=== PATIENT | female | born 1980 | race Caucasian/White ===

== ENCOUNTER 2016-12-14 18:17 | Emergency (ER) | payer OTHER ==
[2016-12-14] MEDS ORDERED: Sodium Chloride 0.9% 1,000 ML IV ONE (19:35)
[2016-12-14] MEDS ORDERED: Sodium Chloride 0.9% 1,000 ML ONE (20:00)
[2016-12-14 20:05] LABS: BASO % 0.4 % (0.0-2.0); EOS % 0.3 % (0.0-4.0); HEMATOCRIT 42.7 % (34.0-47.0); LYMPH # 0.4 K/uL (1.0-4.3); LYMPH % 5.6 % (20.0-40.0); MEAN CELL VOLUME 80.4 fL (81.0-99.0); MEAN CORPUSCULAR HEMOGLOBIN 26.3 pg (27.0-31.0); MEAN CORPUSCULAR HGB CONC 32.8 g/dL (33.0-37.0); MEAN PLATELET VOLUME 8.5 fL (7.2-11.7); MONO # 0.7 K/uL (0.0-0.8); MONO % 10.7 % (0.0-10.0); PLATELET COUNT 361 K/uL (130-400); RED CELL DISTRIBUTION WIDTH 14.2 % (11.5-14.5); WHITE BLOOD COUNT 6.9 K/uL (4.8-10.8)
[2016-12-14 20:17] LABS: CHLORIDE 96 mmol/L (98-107); POTASSIUM 4.1 mmol/L (3.6-5.2); SODIUM 137 mmol/L (132-148)
[2016-12-14 20:19] LABS: BILIRUBIN,TOTAL 0.9 mg/dL (0.2-1.3); CARBON DIOXIDE 21 mmol/L (22-30); GFR AFRICAN-AMERICAN > 60
[2016-12-14 20:20] LABS: ALB/GLOB RATIO 1.2 (1.0-2.1); ALKALINE PHOSPHATASE 99 U/L (38-126); ALT/SGPT 28 U/L (9-52); AST/SGOT 28 U/L (14-36); BLOOD UREA NITROGEN 10 mg/dL (7-17); CALCIUM 9.8 mg/dl (8.6-10.4); GLUCOSE,RANDOM 106 mg/dL (65-105); TOTAL PROTEIN 8.6 g/dL (6.3-8.3)
--- NOTE | 2016-12-14 20:34 | C.PDOC ---
History Of Present Illness 36 y/o female presents to the ED with complains of nausea, vomiting and body aches for the past 2 days. Pt denies eating different foods. No sick contacts. Denies fever, chills, diarrhea, chest pain or any other complaints. Time Seen by Provider: 12/14/16 19:33 Chief Complaint (Nursing): Abdominal Pain History Per: Patient History/Exam Limitations: no limitations Onset/Duration Of Symptoms: Days Current Symptoms Are (Timing): Still Present Severity: Mild Recent travel outside of the [place]: No Past Medical History Reviewed: Historical Data, Nursing Documentation, Vital Signs Vital Signs: Last Vital Signs Temp 98.3 F 12/14/16 18:46 Pulse 109 H 12/14/16 18:46 Resp 18 12/14/16 18:46 BP 127/89 12/14/16 18:46 Pulse Ox 112 H 12/14/16 20:35 Surgical History: Appendectomy, Cholecystectomy, Family History: States: Unknown Family Hx - Social History Hx Alcohol Use: Yes Hx Substance Use: No - Immunization History Hx Tetanus Toxoid Vaccination: Yes Hx Influenza Vaccination: Yes Hx Pneumococcal Vaccination: No Review Of Systems Except As Marked, All Systems Reviewed And Found Negative. Constitutional: Positive for: Other (body aches). Negative for: Fever, Chills Cardiovascular: Negative for: Chest Pain Gastrointestinal: Positive for: Nausea, Vomiting. Negative for: Diarrhea Physical Exam - Physical Exam Appears: Non-toxic, No Acute Distress, Other (obese) Skin: Warm, Dry, No Rash Head: Atraumatic, Normacephalic Oral Mucosa: Moist Throat: Normal, No Erythema Neck: Normal ROM, Supple Chest: Symmetrical Cardiovascular: Rhythm Regular, No Murmur Respiratory: Normal Breath Sounds, No Rales, No Rhonchi, No Wheezing Gastrointestinal/Abdominal: Soft, No Tenderness Extremity: Bilateral: Atraumatic Neurological/Psych: Oriented x3, Normal Speech ED Course And Treatment - Laboratory Results Result Diagrams: 12/14/16 20:02 12/14/16 20:02 Lab Interpretation: Normal (UA neg.) Urine POC: Negative O2 Sat by Pulse Oximetry: 112 - Radiology CXR: Interpreted by Me CXR Interpretation: Yes: No Acute Disease - Other Rad abd x 2 X-Ray: Interpreted by Me (nl) Reevaluation Time: 21:56 Reassessment Condition: Improved Medical Decision Making Medical Decision Making: Plan: Labs, UA, XR abdomen, pepcid, zofran, toradol, IV fluids vomiting x 2 days body aches no dehydration, normal urine Disposition Doctor Will See Patient In The: Office Counseled Patient/Family Regarding: Studies Performed, Diagnosis - Disposition Disposition: HOME/ ROUTINE Disposition Time: 21:56 Condition: GOOD - Clinical Impression Clinical Impression: Vomiting - Scribe Statement The provider has reviewed the documentation as recorded by the Angelic Ely Provider Attestation: All medical record entries made by the Angelic were at my direction and personally dictated by me. I have reviewed the chart and agree that the record accurately reflects my personal performance of the history, physical exam, medical decision making, and the department course for this patient. I have also personally directed, reviewed, and agree with the discharge instructions and disposition.
[2016-12-14 20:37] LABS: BASOPHIL 1 % (0-2); NEUTROPHIL 82 % (50-75); TOTAL CELLS COUNTED 100
[2016-12-14 21:15] LABS: RBC URINE 16 /hpf (0-3); URINE BACTERIA RARE (<OCC); URINE BILIRUBIN NEGATIVE (NEGATIVE); URINE BLOOD 2+ (NEGATIVE); URINE COLOR Yellow (YELLOW); URINE GLUCOSE (UA) NORMAL (Normal); URINE KETONE 2+ mg/dL (NEGATIVE); URINE LEUKOCYTE ESTERASE NEG Leu/uL (Negative); URINE PROTEIN NEGATIVE (NEGATIVE); URINE UROBILINOGEN NORMAL mg/dL (0.2-1.0); WBC URINE < 1 /hpf (0-5)
[2016-12-14 22:17] VITALS: BP 120/73; PULSE 92; RESP 20; TEMP 98; O2SAT 97
--- NOTE | 2016-12-15 12:43 | RAD ---
PROCEDURE: Radiographs of the chest and abdomen (obstructive series) HISTORY: abd pain COMPARISON: No prior. TECHNIQUE: AP radiograph of the chest, with upright and supine radiographs of the abdomen. FINDINGS: CHEST: Lungs: Clear. Cardiovascular: Normal size heart. No pulmonary vascular congestion. Pleura: No pleural fluid. No pneumothorax. Other findings: None. ABDOMEN AND PELVIS: Bowel: No bowel obstruction. Mild retained feces in the right colon. Free air: None. Bones: Unremarkable. Other findings: None. IMPRESSION: Unremarkable radiographs of chest and abdomen. No evidence of mechanical bowel obstruction.
== END 2016-12-14 22:47 | disposition home or self-care (01) ==
LOC: C.ER 18:17
DX: R11.2 Nausea with vomiting, unspecified (principal)
CPT/HCPCS: 74022; 80053; 81001; 83690; 84703; 85025; 96361; 96374; 96375; 99285; J1885; J2405; J7040

== ENCOUNTER 2018-07-09 10:39 | Emergency (ER) | payer OTHER ==
[2018-07-09 11:26] LABS: BASO # 0.1 K/uL (0.0-0.2); EOS # 0.2 K/uL (0.0-0.7); EOS % 2.3 % (0.0-4.0); HEMOGLOBIN 14.1 g/dL (11.0-16.0); LYMPH # 2.9 K/uL (1.0-4.3); LYMPH % 29.6 % (20.0-40.0); MEAN CORPUSCULAR HEMOGLOBIN 27.9 pg (27.0-31.0); MEAN CORPUSCULAR HGB CONC 33.7 g/dL (33.0-37.0); MONO # 0.7 K/uL (0.0-0.8); MONO % 6.8 % (0.0-10.0); NEUT # 5.9 K/uL (1.8-7.0); NEUT % 60.3 % (50.0-75.0); RBC 5.03 Mil/uL (3.80-5.20); WHITE BLOOD COUNT 9.8 K/uL (4.8-10.8)
[2018-07-09 11:27] LABS: MEAN CELL VOLUME 82.8 fL (81.0-99.0)
[2018-07-09 11:37] LABS: HCG,QUALITATIVE URINE NEGATIVE (NEGATIVE)
--- NOTE | 2018-07-09 11:58 | C.PDOC ---
History Of Present Illness 38 year old female presents to the ED complaining of left-sided pelvic pain for the past three days. She reports having her menstrual cycle for twenty days. She states she has used 8-7 pad/day for the last three days. The patient also reports chest pain and SOB for last 4 days with no cough, no fever, not on opc. . She states she saw her Doctor on 07/07 for the chest pain and is scheduled to have an X-Ray done on 07/11. She is meant to set up an appointment on Wednesday when her OBGYN returns. The patient denies any dysuria, frequency, fever, or sexual activity. The patient admits her last BM was this morning. She reports taking Tylenol last night but she states she has not taken any other medication for the pain because she experiences no relief of her symptoms. Time Seen by Provider: 07/09/18 11:01 Chief Complaint (Nursing): Abdominal Pain History Per: Patient History/Exam Limitations: no limitations Onset/Duration Of Symptoms: Days Current Symptoms Are (Timing): Still Present Location Of Pain/Discomfort: Other (Left sided pelvic pain) Quality Of Discomfort: Burning, Stabbing, "Pain" Associated Symptoms: Chest Pain Alleviating Factors: denies: OTC Meds Last Bowel Movement: Today (This morning) Recent travel outside of the [place]: No Past Medical History Reviewed: Historical Data, Nursing Documentation, Vital Signs Vital Signs: Last Vital Signs Temp 98.7 F 07/09/18 10:42 Pulse 76 07/09/18 10:42 Resp 20 07/09/18 10:42 BP 131/89 07/09/18 10:42 Pulse Ox 99 07/09/18 10:42 - Medical History PMH: No Chronic Diseases Surgical History: Appendectomy, Cholecystectomy, Family History: States: Unknown Family Hx - Social History Hx Alcohol Use: Yes Hx Substance Use: No - Immunization History Hx Tetanus Toxoid Vaccination: Yes Hx Influenza Vaccination: Yes Hx Pneumococcal Vaccination: No Review Of Systems Constitutional: Negative for: Fever Cardiovascular: Positive for: Chest Pain Respiratory: Positive for: Shortness of Breath Genitourinary: Positive for: Pelvic Pain. Negative for: Dysuria, Frequency Physical Exam - Physical Exam Appears: Non-toxic, No Acute Distress Skin: Warm, Dry Head: Atraumatic, Normacephalic Eye(s): bilateral: PERRL, EOMI Neck: Supple Chest: Tenderness (reproducible left sternal chest pain ) Cardiovascular: Rhythm Regular (and rate), No Murmur Respiratory: No Rales, No Rhonchi, No Wheezing, Other (CTA b/l) Gastrointestinal/Abdominal: Soft, Tenderness (left sided pelvic tenderness), No Distention, Other (normoactive bowel sounds) Back: No CVA Tenderness Extremity: No Calf Tenderness, No Swelling Neurological/Psych: Oriented x3, Normal Speech ED Course And Treatment - Laboratory Results Result Diagrams: 07/09/18 11:23 07/09/18 12:21 ECG: Interpreted By Me, Viewed By Me ECG Rhythm: Sinus Rhythm Interpretation Of ECG: normal sinus rhythm; nonspecific T wave abnormality; abnormal ECG Rate From EC O2 Sat by Pulse Oximetry: 99 (RA) Pulse Ox Interpretation: Normal Medical Decision Making Medical Decision Making: Impression: 38 y/o female with 20 days menstrual cycle, left sided pelvic pain, chest pain and back pain. Plan: -CMP -CBC -Urine culture -UA 1645 pt has been resting comfortably all day while waiting for test results. pt with normal labs, not anemic. all pain resolved after toradol. 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 discussed with pt that she needs to have uterine biopsy due to thickened endometrium. pt understands. Disposition Counseled Patient/Family Regarding: Studies Performed, Diagnosis, Need For Followup, Rx Given - Disposition Referrals: Adelia Fuentes MD [Medical Doctor] - Disposition: HOME/ ROUTINE Disposition Time: 16:56 Condition: IMPROVED Additional Instructions: Please follow up with Dr Lovelace on Wednesday. Recommend Sales Vendor appointment as soon as possible with a uterine biopsy recommended- bring copy of pelvic ultrasound report with your to doctor. Take ibuprofen for pain. Return to ER for any worsening symptoms. Por favor gato el seguimiento con el Dr. [place] snyder. Recomiende mariana spencer con el gineclogo freeman pronto sincere sea posible con mariana biopsia uterina recomendada: traiga mariana copia del informe de ecografa de la pelvis al mdmaik. [place] ibuprofeno para el dolor. Regrese a la helga de emergencias por cualquier empeoramiento de los sntomas. Prescriptions: Ibuprofen [Motrin] 600 mg PO TID #30 tab Instructions: Acute Pelvic Pain (DC) Forms: Gen Discharge Inst Gabonese, [facility] (Gabonese) - Clinical Impression Clinical Impression: DUB (dysfunctional uterine bleeding), Pelvic pain - PA / [employer]ERSON[employer] SERV[employer] WORKERS / Resident Statement MD/DO has reviewed & agrees with the documentation as recorded. - Scribe Statement The provider has reviewed the documentation as recorded by the Scribe (Amanda Perales) All medical record entries made by the Scribe were at my direction and personally dictated by me. I have reviewed the chart and agree that the record accurately reflects my personal performance of the history, physical exam, medical decision making, and the department course for this patient. I have also personally directed, reviewed, and agree with the discharge instructions and disposition.
[2018-07-09 12:04] LABS: SQUAMOUS EPITHIAL < 1 /hpf (0-5); URINE BACTERIA RARE (<OCC)
[2018-07-09 12:17] LABS: URINE BILIRUBIN NEGATIVE (NEGATIVE); URINE CLARITY Clear (Clear); URINE COLOR Straw (YELLOW); URINE GLUCOSE (UA) NORMAL (Normal); URINE LEUKOCYTE ESTERASE NEG Leu/uL (Negative); URINE PROTEIN NEGATIVE (NEGATIVE); URINE UROBILINOGEN NORMAL mg/dL (0.2-1.0)
[2018-07-09 12:34] LABS: URINE BLOOD 3+ (NEGATIVE)
[2018-07-09 12:36] LABS: ALB/GLOB RATIO 1.2 (1.0-2.1); ALBUMIN 4.4 g/dL (3.5-5.0); ALT/SGPT 24 U/L (9-52); AST/SGOT 20 U/L (14-36); BLOOD UREA NITROGEN 9 mg/dL (7-17); CALCIUM 9.5 mg/dl (8.6-10.4); GFR NON-AFRICAN AMERICAN > 60
--- NOTE | 2018-07-09 13:36 | RAD ---
Date of service: 07/09/2018 HISTORY: Chest pain COMPARISON: No prior. TECHNIQUE: Chest PA and lateral FINDINGS: LUNGS: Mild venous congestion. PLEURA: No significant pleural effusion identified. No pneumothorax apparent. CARDIOVASCULAR: No atherosclerotic calcification present Normal. OSSEOUS STRUCTURES: No significant abnormalities. VISUALIZED UPPER ABDOMEN: Normal. OTHER FINDINGS: None. IMPRESSION: Mild venous congestion.
[2018-07-09 14:56] VITALS: BP 107/71; PULSE 62; RESP 18; TEMP 98.6
--- NOTE | 2018-07-09 16:12 | US ---
Pelvic ultrasound HISTORY: Pelvic pain. Abnormal bleeding. COMPARISON: None available. TECHNIQUE: Real-time sonography was through the pelvis utilizing transabdominal and transvaginal techniques. FINDINGS: Urine test was negative. Uterus: 12.2 x 4.8 x 7.8 centimeters. Heterogeneous echotexture. Retroverted. Suggestion of a bicornuate uterus. Right-sided endometrium measures up to 1.7 centimeters, thickened. Left-sided endometrium measures up to 8 millimeters. Cervix measures 4.3 centimeters. Echogenic material and or debris seen within the cervix. No free fluid in pelvic cul-de-sac. Right ovary: 3.0 x 2.0 x 2.9 centimeters. Normal flow. Left ovary: 2.4 x 1.5 x 2.4 centimeters. Normal flow. IMPRESSION: 1. Suggestion of a bicornuate uterus. The right aspect of the endometrium of the uterus appears thickened measuring up to 1.7 centimeters. Clinical correlation. 2. Echogenic material and or debris seen within the cervix which appears thickened. Clinical correlation. Correlation with [facility] ASSISTANT consultation and or further evaluation with pelvic MRI may be helpful if clinically indicated.
[2018-07-09 16:56] VITALS: O2SAT 99
--- NOTE | 2018-07-12 19:26 | CARD ---
APPROVED REPORT Date of service: 07/09/2018 EKG Measurement Heart [id number] <Conclusion> Normal sinus rhythm Nonspecific T wave abnormality Abnormal ECG
== END 2018-07-09 18:00 | disposition home or self-care (01) ==
LOC: C.ER 10:39
DX: R10.2 Pelvic and perineal pain (principal); N93.8 Other specified abnormal uterine and vaginal bleeding
CPT/HCPCS: 71046; 76830; 76856; 80053; 81001; 84703; 85025; 87086; 93005; 96374; 99285; J1885